=== PATIENT | male | born 1950 | race Caucasian/White ===

== ENCOUNTER 2017-01-12 13:59 | Emergency (ER) | payer MEDICARE ==
--- NOTE | ~2017-01-12 | CT2 ---
[facility] A Service of [facility] RADIOLOGY TEXT RESULTS PATIENT: SOFIE SPANGLER JR LOCATION: [facility] : [birth year] UNIT #: [id number] AGE: [address]: Toro Prieto MD SEX: M ORDER DR: [id number] [facility] [address] [place], [place] [address] [id number] MR#: [id number] Acc #: [id number] NAME: SOFIE SPANGLER JR : 1950 SEX: M STUDY DATE/TIME: 01/12/2017 15:00 UNIT: [facility] ROOM: STUDY DESCRIPTION: CT Abd and Pelv W Cont Attending Physician: Toro Prieto M.D. Ordering Physician: Toro Prieto M.D. Primary Care Physician: Jennifer Rasheed Aprn MEDICAL IMAGING REPORT This report is preliminary unless electronic signature is present EXAM CT abdomen and pelvis 01/12/2017 INDICATIONS Nausea, vomiting and diarrhea with mid to lower abdominal pain for the last 3-4 days. History of lymphoma and hepatitis C and aortic aneurysm. TECHNIQUE Axial images were obtained through the abdomen and pelvis following oral and IV contrast administration. Multiplanar reformats were obtained. This CT exam was performed with one or more of the following radiation dose reduction techniques: automatic exposure control, adjustment of mA and/or kV according to patient size, and iterative reconstruction. COMPARISON STUDIES Comparison made with 12/21/2016. FINDINGS CT ABDOMEN: There is a small right pleural effusion that is not significantly changed. There is extensive atherosclerotic disease. An infrarenal abdominal aortic aneurysm measures up to about 5.1 cm which is unchanged. Massive splenomegaly is unchanged. There is some fatty infiltration of the liver, and the liver has a cirrhotic morphology. No focal liver mass is identified. There are a few small retroperitoneal lymph nodes which are unchanged. Minimal amount of free fluid is relatively stable as well. The gallbladder has been removed in the interval. There is a small fluid and gas collection in the gallbladder fossa. This could reflect a biloma with some postoperative gas. Correlate with time from surgery. Given potential gas bubbles, abscess cannot be completely excluded although this is felt to be less likely. The GI tract is within normal limits. There is some fluid in the colon compatible with diarrhea. [facility] A Service of [facility] RADIOLOGY TEXT RESULTS PATIENT: SOFIE SPANGLER JR LOCATION: [facility] : 52 UNIT #: [id number] AGE: [address]: Toro Prieto MD SEX: M ORDER DR: CT PELVIS: There is some mild body wall edema. There is a small volume of ascites. The volume of fluid has increased since the prior CT. A round calcification laying dependently in the posterior pelvis measures 1.6 cm in diameter and is most likely a dropped gallstone. There is sigmoid diverticulosis. The colon is fluid-filled compatible with diarrhea. The GI tract including the appendix is otherwise normal. No adenopathy in the pelvis. There are no suspicious osseous lesions in the abdomen or pelvis. IMPRESSION 1. Interval cholecystectomy. No biliary obstruction. There is a small fluid collection in the gallbladder fossa and there appears to be some gas within it. This may simply reflect a small seroma in a recently postoperative patient. Abscess and biloma not completely excluded based on this exam alone. 2. Cirrhosis and massive splenomegaly unchanged. 3. Stable small right pleural effusion. 4. Small volume of ascites in the abdomen and pelvis, slightly increased. 5. Dropped gallstone in the dependent pelvis. 6. Fluid-filled colon suggesting diarrhea. The GI tract is otherwise within normal limits. 7. Stable appearance of a 5.1 cm abdominal aortic aneurysm. Dictated by... Sumanth Esqueda Jr., M.D. THIS IS AN ELECTRONICALLY VERIFIED REPORT Sumanth Esqueda Jr., M.D. at 01/13/2017 8:09 AM OMAYRA/gabe TD: 01/12/2017 18:36 JOB #: [id number] MEDICAL IMAGING REPORT COPY
[2017-01-12 13:06] LABS: BASOPHIL% 0.2 % (0-2.5); EOSINOPHIL# 0.1 X10e3 (0-0.7); EOSINOPHIL% 0.8 % (0.0-7.0); HEMATOCRIT 36.1 % (38.0-50.0); HEMOGLOBIN 11.4 gm/dL (13.0-16.0); LYMPHOCYTE# 0.7 X10e3 (1.0-3.5); MEAN CELL VOLUME 78.3 FL (83-96); MEAN CORPUSCULAR HEMOGLOBIN 24.6 PG (28-34); MEAN CORPUSCULAR HGB CONC 31.4 g/dL (30-36); MONOCYTE# 0.7 X10e3 (0-1.0); MONOCYTE% 8.1 % (3.0-12.0); NEUTROPHIL# 7.3 X10e3 (1.5-7.1); NEUTROPHIL% 82.9 % (40-75); PLATELET COUNT 151 X10e3 (140-420); RED BLOOD COUNT 4.62 X10e (3.90-5.60); RED CELL DISTRIBUTION WIDTH 18.2 % (11.0-15.5); WHITE BLOOD COUNT 8.9 X10e3 (4.0-10.5)
[2017-01-12 13:08] LABS: DIFF IND NO
[2017-01-12 13:32] LABS: ALBUMIN SERUM 4.5 g/dL (3.5-5.0); ALKALINE PHOSPHATASE 146 U/L (32-92); ALT (SGPT) 21 U/L (10-40); AST (SGOT) 26 U/L (10-42); BILIRUBIN, DIRECT 0.3 mg/dL (0.0-0.2); BILIRUBIN,INDIRECT 0.9 mg/dL (0.0-0.9); BILIRUBIN,TOTAL 1.2 mg/dL (0.2-2.0); BLOOD UREA NITROGEN 34 mg/dL (9-23); CALCIUM SERUM 9.9 mg/dL (8.4-10.2); CARBON DIOXIDE 30 mmol/L (22-31); CHLORIDE 102 mmol/L (100-111); GLOM FILT RATE Estimated ABOVE60 mL/min (>60); GLUCOSE FASTING 150 mg/dL (70-110); LIPASE 14 U/L (22-51); POTASSIUM 4.4 mmol/L (3.5-5.1); PROTEIN TOTAL SERUM 7.9 g/dL (6.0-8.3); SODIUM 141 mmol/L (135-145)
[~2017-01-12 13:59] MED LIST: ADVIL200 M2 PO; AGGRENOX1 CAP PO; ALDACTONE25 MG PO; ANTIVERT PO; ASA-CA CARB-MA325 MG PO; ASPIR-TRIN325 MG PO; ASPIRIN EC81 M1 PO; ASPIRIN ENTERI325 M1 PO; ASPIRIN PO; ASPIRIN81 M2 PO; ASPIRIN81 MG PO; ATORVASTATIN CA10 MG PO; B-122500 MC1 PO; BAYER ASPIRIN325 M1 PO; BUMETANIDE1 MG PO; CARVEDILOL25 MG PO; CELEXA20 MG PO; COATED ASPIRIN325 M1 PO; COREG3.125 MG PO; COREG6.25 MG PO; DIGOX0.125 MG PO; DOXYCYCLINE HY100 M1 PO; FEROSUL325 ( 651 PO; FOLIC ACID PO; FUROSEMIDE40 MG PO; GLUCOTROL PO; IMDUR-ER30 M1 PO; IMDUR-ER60 M3 PO; IMDUR30 MG PO; IRON325 ( 651 PO; K-DUR20 ME1 PO; KEFZOL1 GM IV; KEPPRA500 M1 PO; LASIX PO; LASIX20 MG PO; LIPITOR PO; LISINOPRIL PO; LISINOPRIL20 MG PO; LORTAB 7.5-3251 EACH PO; LOSARTAN POTASS50 MG PO; METOPROLOL TAR25 MG PO; MULTI-VITAMIN1 TAB PO; MULTIVITAMIN1 UDCAP PO; NITROGLYCERIN0.3 MG SL; NITROGLYCERIN0.4 MG SL; NITROGLYGERIN0.4 MG; NITROGLYGERIN0.4 MG SL; NITROGYLCERIN SUBLINGUAL; NITROSTAT0.4 MG SL; PANTOPRAZOLE SO40 MG PO; PHENERGAN W/CO120 ML PO; PLAVIX PO; POTASSIUM CHLO20 ME1 PO; POTASSIUM GLUCO PO; PRINIVIL40 MG PO; RANEXA500 MG DOB; RANEXA500 MG PO; RIBASPHERE200 MG PO; RIBASPHERE400 MG PO; SOVALDI400 MG PO; TEMAZEPAM PO; THIAMINE HCL100 M1 DOB; ZOCOR PO
== END 2017-01-12 16:20 | disposition home or self-care (01) ==
LOC: CED 13:59
PROVIDERS: Emergency Medicine
DX: R10.84 Generalized abdominal pain (principal); R11.2 Nausea with vomiting, unspecified; R19.7 Diarrhea, unspecified; I10 Essential (primary) hypertension; Z90.89 Acquired absence of other organs; Z79.82 Long term (current) use of aspirin; Z79.899 Other long term (current) drug therapy
CPT/HCPCS: 36415; 74177; 80048; 80076; 83690; 85025; 96361; 96374; 96376; 99284; J2270; Q9967

== ENCOUNTER 2017-01-21 17:21 | Inpatient (IN) | payer MEDICARE ==
--- NOTE | ~2017-01-21 | CR4 ---
[facility] A Service of [facility] & [facility] RADIOLOGY TEXT RESULTS PATIENT: SOFIE SPANGLER JR LOCATION: [facility] 475-01 : [birth year] UNIT #: [id number] AGE: [address]: Sumanth Newsome MD SEX: M ORDER DR: [id number] [facility] [address] [place], [place] [address] [id number] I MR#: [id number] Acc #: [id number] NAME: SOFIE SPANGLER JR : 1950 SEX: M STUDY DATE/TIME: 01/22/2017 11:41 UNIT: [facility] ROOM: [facility] STUDY DESCRIPTION: CR Abdomen Flat Upright or Dec Attending Physician: Sumanth Newsome M.D. Ordering Physician: Sumanth Newsome M.D. Primary Care Physician: Primary Care Physician No MEDICAL IMAGING REPORT This report is preliminary unless electronic signature is present EXAM Flat and upright abdomen INDICATIONS 66-year-old male with history of nausea, vomiting, abdominal pain following a cholecystectomy 2 weeks ago. COMPARISON 01/21/2017 FINDINGS The previously noted dilated loops of small bowel are no longer present. Oral contrast within the colon. Contrast in the urinary bladder. Cholecystectomy clips. Aortic aneurysm again noted. IMPRESSION No evidence of any dilated loops of small bowel on today's exam. Oral contrast has passed into the colon. Dictated by... Champ Browne M.D. THIS IS AN ELECTRONICALLY VERIFIED REPORT Champ Browne M.D. at 01/23/2017 10:43 AM ANGEL/ben TD: 01/23/2017 06:10 JOB #: [id number] MEDICAL IMAGING REPORT COPY
--- NOTE | ~2017-01-21 | DS ---
Unit #: [id number] #: [id number] Patient: SOFIE SPANGLER JR [id number] [address] [address] [id number] I MR#: [id number] NAME: SOFIE SPANGLER JR ROOM: [facility] Age: 66 Sex: M Admission Date: 01/21/2017 : 1950 Discharge Date: 01/24/2017 Attending Physician: Sumanth Newsome M.D. Primary Care Physician: No Primary Care Physician DISCHARGE SUMMARY CONSULTATIONS None. ADMITTING DIAGNOSIS Partial small bowel obstruction. DISCHARGE DIAGNOSIS Partial small bowel obstruction. PROCEDURE PERFORMED None. BRIEF HOSPITAL COURSE This is a 66-year-old gentleman who was admitted with signs and symptoms of partial small bowel obstruction. He was hydrated and had followup x-rays, which showed improvement in his bowel gas pattern. He was slowly transitioned to a full liquid diet and then a regular diet and was passing flatus. He felt much better. He was then discharged home. DISPOSITION Discharged to home. FOLLOW-UP He is to follow up with [facility] as necessary. MEDICATIONS He is to resume his home medications. Dictated by... Adolfo Alonzo III, M.D. VCL/noah TD: 01/24/2017 10:35 JOB #: [id number] Unit #: [id number] #: [id number] Patient: SOFIE SPANGLER JR DISCHARGE SUMMARY X Adolfo Alonzo III, MD X DISCHARGE SUMMARY
--- NOTE | ~2017-01-21 | HP ---
Unit #: [id number] #: [id number] Patient: SOFIE BISHOP JR [id number] [address] [address] [id number] I MR#: [id number] NAME: SOFIE BISHOP JR ROOM: [facility] Age: 66 Sex: M Admission Date: 01/21/2017 : 1950 Attending Physician: Sumanth Newsome M.D. Primary Care Physician: No Primary Care Physician HISTORY AND PHYSICAL HISTORY OF PRESENT ILLNESS Mr. Bishop is a 66-year-old gentleman with a history of heart disease and congestive heart failure, portal hypertension from hepatic cirrhosis and ischemic cardiomyopathy. He presented with complaints of abdominal discomfort, nausea and vomiting. An outpatient CT scan was read as ileus versus partial small bowel obstruction. Only prior surgeries he has had are an umbilical hernia repair in the remote past and a recent laparoscopic cholecystectomy in 12/2016. The patient denies any fever, chills or night sweats. He has not had any hematemesis, hematochezia or melena. PAST MEDICAL HISTORY 1. Hepatic cirrhosis with portal hypertension. 2. Cholelithiasis status post laparoscopic cholecystectomy. 3. Umbilical hernia repair. 4. Chronic systolic congestive heart failure. 5. Stroke. 6. TIAs in the past. 7. Esophageal varices with banding. 8. Coronary artery disease status post coronary artery bypass grafting in 2003 with a redo in 2007. 9. Dilated ischemic cardiomyopathy with an ejection fraction of 20%. 10. Atrial implantable cardioverter defibrillator placed. 11. History of thrombocytopenia. 12. Anemia. 13. Hepatitis C. 14. Abdominal aortic aneurysm. 15. Peripheral vascular disease. 16. Stenting to the bilateral fem/pop arteries. 17. Previous history of atrial fibrillation. 18. History of alcoholism. 19. History of tobacco abuse, although he currently does not smoke or drink. SOCIAL HISTORY Retired. No longer drinks or smokes. FAMILY HISTORY Hypertension, heart disease, lung cancer. ALLERGIES No known drug allergies. CURRENT MEDICATIONS Unit #: [id number] #: [id number] Patient: SOFIE BISHOP JR 1. Ranexa. 2. Coreg. 3. Atorvastatin. 4. Bumetanide. 5. Protonix. 6. Ferrous sulfate. 7. K-Dur. 8. Aldactone. 9. Aspirin. 10. Digoxin. 11. Lortab. 12. Lorazepam. 13. NitroQuick. REVIEW OF SYSTEMS Otherwise unremarkable. PHYSICAL EXAMINATION GENERAL: He is awake, alert and oriented, in no acute distress. VITALS: Temperature 97.8, pulse 60, respiratory rate 14, blood pressure 139/45. HEENT: Unremarkable. LUNGS: Clear. HEART: Regular rhythm. ABDOMEN: Slightly distended, but soft. He has well-healed surgical scars with no hernia. He has mild guarding diffusely, but there is no rebound tenderness or localized discomfort. The patient has bowel sounds and has been passing flatus this morning. EXTREMITIES: No edema. NEUROLOGIC: Grossly intact. SKIN: No skin rashes or lesions. DIAGNOSTIC STUDIES IMAGING: CT scan as discussed. Possibility of partial small bowel obstruction versus ileus. LABORATORY: CMP this morning is within normal limits. Amylase and lipase are normal. White blood cell count 5,400 with normal differential. Hemoglobin 10.9, platelets 149,000. MCV is 78 and MCH 24, but he has known iron deficiency. ASSESSMENT/PLAN The patient is a 66-year-old gentleman as described, presents with nausea and vomiting and a CT scan as an outpatient was consistent with ileus versus early partial small bowel obstruction. There are no other acute findings. Since admission the patient has had no further vomiting and has started to pass flatus. We will hydrate the patient, stimulate his bowel and repeat abdominal x-rays. Due to his high risk comorbid conditions before considering any surgical intervention I would perform a small bowel followthrough to confirm that there is a mechanical obstruction. Dictated by Sumanth Newsome M.D. RS/gz Unit #: [id number] #: [id number] Patient: SOFIE BISHOP JR TD: 01/22/2017 06:52 JOB #: [id number] HISTORY AND PHYSICAL X Sumanth Newsome MD HISTORY AND PHYSICAL
[2017-01-21 17:16] LABS: BASOPHIL% 0.6 % (0-2.5); EOSINOPHIL# 0.2 X10e3 (0-0.7); EOSINOPHIL% 3.9 % (0.0-7.0); HEMATOCRIT 30.6 % (38.0-50.0); HEMOGLOBIN 9.8 gm/dL (13.0-16.0); LYMPHOCYTE# 0.7 X10e3 (1.0-3.5); LYMPHOCYTE% 14.6 % (17.0-45.0); MEAN CELL VOLUME 77.4 FL (83-96); MEAN CORPUSCULAR HEMOGLOBIN 24.8 PG (28-34); MEAN PLATELET VOLUME 8.7 FL (6.5-11.5); MONOCYTE# 0.5 X10e3 (0-1.0); MONOCYTE% 9.7 % (3.0-12.0); NEUTROPHIL# 3.3 X10e3 (1.5-7.1); NEUTROPHIL% 71.2 % (40-75); PLATELET COUNT 133 X10e3 (140-420); RED BLOOD COUNT 3.95 X10e (3.90-5.60); RED CELL DISTRIBUTION WIDTH 18.1 % (11.0-15.5); WHITE BLOOD COUNT 4.7 X10e3 (4.0-10.5)
[2017-01-21 17:18] LABS: DIFF IND NO
[2017-01-21 17:41] LABS: ALBUMIN SERUM 4.1 g/dL (3.5-5.0); ALKALINE PHOSPHATASE 116 U/L (32-92); ALT (SGPT) 12 U/L (10-40); AMYLASE 22 U/L (0-46); AST (SGOT) 16 U/L (10-42); BILIRUBIN, DIRECT 0.2 mg/dL (0.0-0.2); BILIRUBIN,INDIRECT 0.8 mg/dL (0.0-0.9); BLOOD UREA NITROGEN 20 mg/dL (9-23); CARBON DIOXIDE 25 mmol/L (22-31); CHLORIDE 102 mmol/L (100-111); CREATININE SERUM 0.8 mg/dL (0.6-1.4); GLOM FILT RATE Estimated ABOVE60 mL/min (>60); GLUCOSE FASTING 99 mg/dL (70-110); LIPASE 13 U/L (22-51); POTASSIUM 4.5 mmol/L (3.5-5.1); SODIUM 137 mmol/L (135-145)
[2017-01-22] MEDS ORDERED: ATIVAN PO (01:51)
[2017-01-22] MEDS ORDERED: NITROQUICK0.4 MG SL (01:54)
[2017-01-22 03:47] LABS: BASOPHIL% 0.6 % (0-2.5); EOSINOPHIL# 0.2 X10e3 (0-0.7); HEMATOCRIT 34.9 % (38.0-50.0); HEMOGLOBIN 10.9 gm/dL (13.0-16.0); LYMPHOCYTE# 0.8 X10e3 (1.0-3.5); LYMPHOCYTE% 14.5 % (17.0-45.0); MEAN CELL VOLUME 78.2 FL (83-96); MEAN CORPUSCULAR HEMOGLOBIN 24.3 PG (28-34); MEAN CORPUSCULAR HGB CONC 31.2 g/dL (30-36); MONOCYTE# 0.5 X10e3 (0-1.0); MONOCYTE% 9.9 % (3.0-12.0); NEUTROPHIL# 3.9 X10e3 (1.5-7.1); PLATELET COUNT 149 X10e3 (140-420); RED BLOOD COUNT 4.47 X10e (3.90-5.60); RED CELL DISTRIBUTION WIDTH 18.1 % (11.0-15.5); WHITE BLOOD COUNT 5.4 X10e3 (4.0-10.5)
[2017-01-22 03:49] LABS: DIFF IND NO
[2017-01-22 04:12] LABS: ALBUMIN SERUM 4.3 g/dL (3.5-5.0); ALKALINE PHOSPHATASE 123 U/L (32-92); ALT (SGPT) 16 U/L (10-40); AMYLASE 19 U/L (0-46); AST (SGOT) 19 U/L (10-42); BLOOD UREA NITROGEN 17 mg/dL (9-23); BUN/CREATININE RATIO 21.25; CARBON DIOXIDE 26 mmol/L (22-31); CHLORIDE 108 mmol/L (100-111); CREATININE SERUM 0.8 mg/dL (0.6-1.4); GLOM FILT RATE Estimated ABOVE60 mL/min (>60); GLUCOSE FASTING 125 mg/dL (70-110); LIPASE 12 U/L (22-51); MAGNESIUM 1.9 mg/dL (1.6-3.0); PHOSPHOROUS 3.6 mg/dL (2.5-4.6); POTASSIUM 4.1 mmol/L (3.5-5.1); PROTEIN TOTAL SERUM 7.4 g/dL (6.0-8.3); SODIUM 138 mmol/L (135-145)
[2017-01-23 03:51] LABS: HEMATOCRIT 28.6 % (38.0-50.0); HEMOGLOBIN 9.2 gm/dL (13.0-16.0); MEAN CORPUSCULAR HEMOGLOBIN 24.7 PG (28-34); MEAN CORPUSCULAR HGB CONC 32.1 g/dL (30-36); MEAN PLATELET VOLUME 8.6 FL (6.5-11.5); RED BLOOD COUNT 3.72 X10e (3.90-5.60); RED CELL DISTRIBUTION WIDTH 18.4 % (11.0-15.5); WHITE BLOOD COUNT 2.9 X10e3 (4.0-10.5)
[2017-01-23 04:15] LABS: BLOOD UREA NITROGEN 14 mg/dL (9-23); CALCIUM SERUM 8.4 mg/dL (8.4-10.2); CARBON DIOXIDE 26 mmol/L (22-31); CHLORIDE 105 mmol/L (100-111); CREATININE SERUM 0.7 mg/dL (0.6-1.4); DIGOXIN (LANOXIN) 0.4 ng/ml (1.0-2.0); GLOM FILT RATE Estimated ABOVE60 mL/min (>60); GLUCOSE FASTING 91 mg/dL (70-110); MAGNESIUM 1.8 mg/dL (1.6-3.0); POTASSIUM 3.9 mmol/L (3.5-5.1); SODIUM 135 mmol/L (135-145)
[2017-01-24 03:55] LABS: HEMATOCRIT 27.6 % (38.0-50.0); HEMOGLOBIN 8.9 gm/dL (13.0-16.0); MEAN CORPUSCULAR HEMOGLOBIN 24.5 PG (28-34); MEAN CORPUSCULAR HGB CONC 32.2 g/dL (30-36); MEAN PLATELET VOLUME 8.9 FL (6.5-11.5); RED BLOOD COUNT 3.64 X10e (3.90-5.60); RED CELL DISTRIBUTION WIDTH 17.9 % (11.0-15.5); WHITE BLOOD COUNT 2.2 X10e3 (4.0-10.5)
[2017-01-24 04:19] LABS: BLOOD UREA NITROGEN 8 mg/dL (9-23); BUN/CREATININE RATIO 13.33; CALCIUM SERUM 8.2 mg/dL (8.4-10.2); CARBON DIOXIDE 27 mmol/L (22-31); CHLORIDE 108 mmol/L (100-111); CREATININE SERUM 0.6 mg/dL (0.6-1.4); GLOM FILT RATE Estimated ABOVE60 mL/min (>60); GLUCOSE FASTING 116 mg/dL (70-110); POTASSIUM 3.4 mmol/L (3.5-5.1); SODIUM 136 mmol/L (135-145)
== END 2017-01-24 10:00 | disposition home health service (06) | DRG 389 ==
LOC: CED 17:21 → CEDOF 18:30 → C4C 21:00
PROVIDERS: Specialist; Student in an Organized Health Care Education/Training Program
DX: K56.60 Unspecified intestinal obstruction (principal); K76.6 Portal hypertension; I42.0 Dilated cardiomyopathy; I50.22 Chronic systolic (congestive) heart failure; J44.9 Chronic obstructive pulmonary disease, unspecified; I10 Essential (primary) hypertension; Z90.49 Acquired absence of other specified parts of digestive tract; I25.10 Atherosclerotic heart disease of native coronary artery without angina pectoris; Z95.1 Presence of aortocoronary bypass graft; K74.60 Unspecified cirrhosis of liver; I25.5 Ischemic cardiomyopathy; Z79.82 Long term (current) use of aspirin; R19.7 Diarrhea, unspecified; I71.4 Abdominal aortic aneurysm, without rupture; F10.21 Alcohol dependence, in remission; D64.9 Anemia, unspecified; I73.9 Peripheral vascular disease, unspecified; Z82.49 Family history of ischemic heart disease and other diseases of the circulatory system; Z80.1 Family history of malignant neoplasm of trachea, bronchus and lung; R11.2 Nausea with vomiting, unspecified; R10.9 Unspecified abdominal pain; K63.89 Other specified diseases of intestine; R93.8 Abnormal findings on diagnostic imaging of other specified body structures
CPT/HCPCS: 36415; 74020; 74177; 80048; 80053; 80076; 80162; 82150; 83690; 83735; 84100; 84443; 85025; 85027; 96374; 96375; 99285; C9113; J1160; J1650; J2270; J2405; Q9967

== ENCOUNTER 2017-02-09 23:59 | Emergency (ER) | payer MEDICARE ==
[~2017-02-09 23:59] MED LIST changes: +ATIVAN PO; +NITROQUICK0.4 MG SL
== END 2017-02-10 01:11 | disposition home or self-care (01) ==
LOC: CED 23:59
DX: G89.18 Other acute postprocedural pain (principal); R10.11 Right upper quadrant pain; E11.9 Type 2 diabetes mellitus without complications; Z90.49 Acquired absence of other specified parts of digestive tract; I10 Essential (primary) hypertension; J44.9 Chronic obstructive pulmonary disease, unspecified; Z79.899 Other long term (current) drug therapy
CPT/HCPCS: 99283

== ENCOUNTER 2017-03-07 21:34 | Inpatient (IN) | payer MEDICARE ==
--- NOTE | ~2017-03-07 | CO ---
Unit #: [id number] #: [id number] Patient: SOFIE BISHOP JR [id number] [address] [address] [id number] MR#: [id number] NAME: SOFIE BISHOP JR ROOM: 31608 Age: 66 Sex: M Admission Date: 03/08/2017 : 1950 Attending Physician: Shay Franco M.D. Primary Care Physician: Cherrie Primary Care Physician Consultation Date: 03/08/2017 CONSULTATION REPORT REASON FOR CONSULTATION 1. Nausea and vomiting. 2. Diarrhea. CONSULTING PHYSICIAN 1. Dr. Yanna Cabrera. 2. HIPS. HISTORY OF PRESENT ILLNESS Thank you very much for asking us to see Mr. Bishop. He is a 66-year-old white male who had underwent laparoscopic cholecystectomy in December 2016 and an umbilical hernia repair in the past. At the time of cholecystectomy, he was found to have acute cholecystitis, cholelithiasis, cirrhosis of the liver, and evidence of portal hypertension. The patient overall had been doing well until the last several days when he developed multiple episodes of nausea and vomiting. He denies any hematemesis. He also developed watery diarrhea. He states he will have five to six watery bowel movements per day. He denies any blood present. He has no severe pain. He has no crampy pain, just vague discomfort. He presents at this time for further evaluation and treatment. PAST MEDICAL HISTORY 1. Cirrhosis. 2. Portal hypertension. 3. Status post laparoscopic cholecystectomy. 4. Status post umbilical hernia repair. 5. Chronic congestive heart failure. 6. History of stroke in the past. 7. History of esophageal varices with banding. 8. Coronary artery disease. 9. Status post coronary artery bypass grafting. 10. Thrombocytopenia. 11. Pacemaker placement. 12. Ischemic cardiomyopathy. 13. Anemia. 14. Hepatitis C. 15. Abdominal aortic aneurysm. 16. Peripheral vascular disease with study to bilateral lower extremities. 17. History of atrial fibrillation. 18. History of heavy alcohol use. 19. History of heavy tobacco use. SOCIAL HISTORY Unit #: [id number] #: [id number] Patient: SOFIE BISHOP JR No tobacco or alcohol use at this time. FAMILY HISTORY Hypertension, lung cancer, heart disease. ALLERGIES No known medical allergies. MEDICATIONS Please see med rec sheet. REVIEW OF SYSTEMS Negative except for above. IMMUNIZATIONS Status unknown. PHYSICAL EXAMINATION GENERAL: Well-developed, well-nourished, white male in no apparent distress. VITAL SIGNS: Afebrile. Vital signs stable. NECK: Supple. No thyromegaly or adenopathy. BACK: No CVA or spinous tenderness. CHEST: Breath sounds bilaterally equal to auscultation and clear. CARDIAC: Regular rate and rhythm without murmur heard. ABDOMEN: Flat, soft, minimally tender, nondistended. No rigidity. No masses. No rebound or peritoneal signs. Incisions are all healed nicely. No palpable inguinal hernia is present. EXTREMITIES: No calf tenderness. DIAGNOSTIC STUDIES LABORATORY: Laboratory studies reveal the patient to have a normal CMP and amylase and lipase. His white count is 2.4 which is in the range that it has been over the last several months and his hemoglobin is 10.9 which also is in the range that he has been in for the last two to three months. His MCV is 75.2. Platelet count is 102,000. Urinalysis was normal. IMAGING: CT scan of the abdomen and pelvis reveals some dilated small bowel loops in the right lower quadrant but there are gases still in the colon. The small bowel loops have a nonspecific appearance per the radiologist. There may be a slight transition zone but no evidence of obstruction and it is unchanged from previous studies. There also is an abdominal aortic aneurysm that the size is unchanged but mural thrombus has increased. IMPRESSION A 66-year-old white male with nausea, vomiting, diarrhea. We agree with the need for Protonix as well as stool studies sent for Clostridium difficile, culture and toxin, ova and parasite, culture and sensitivity. We will add Hemoccult testing. He may need upper and lower endoscopy. We will also have vascular surgery see the patient for increased mural thrombus of the aneurysm. Thank you very much for this dictation. Unit #: [id number] #: [id number] Patient: CRYS SOFIE Chula Dictated by... Gabriel Dukes/george TD: 03/08/2017 15:26 JOB #: [id number] CC: [facility] [place] [facility] Hips CONSULTATION REPORT Page 1 of 1 X Emigdio Garza MD REPORT
--- NOTE | ~2017-03-07 | EKG ---
PATIENT: SOFIE SPANGLER UNIT #: [id number] Ventricular Rate: 67 BPM Atrial Rate: 67 BPM P-R Interval: 232 ms QRS Duration: 126 ms Q-T Interval: 392 ms QTC Calculation(Bezet): 414 ms P Cameron: 83 degrees Calculated R Cameron: 92 degrees Calculated T Cameron: 169 degrees Diagnosis Line: Sinus rhythm with 1st degree A-V block Diagnosis Line: Rightward axis Diagnosis Line: Non-specific intra-ventricular conduction block Diagnosis Line: T wave abnormality, consider inferior ischemia Diagnosis Line: T wave abnormality, consider anterolateral Diagnosis Line: ischemia Diagnosis Line: Abnormal ECG Diagnosis Line: When compared with ECG of 31-DEC-2016 06:27, Diagnosis Line: T wave inversion more evident in Anterolateral Diagnosis Line: leads Diagnosis Line: Confirmed by JOSE NIÑO MD ([id number]) on 03/07/2017 Diagnosis Line: 10:37:04 PM INTERPRETING MD: SALINAS LARA
--- NOTE | ~2017-03-07 | A ---
[facility] Nutrition Therapy DATE: 03/09/17 Patient: SOFIE SPANGLER Physician: IVANA Address: [address] Room/Bed: [address] [place] [address], Zip: [place] [address] Admit Date: 03/08/17 Date of : [birth year] Height: 5 9 Weight: 161 73.2 NUTRITIONAL ASSESSMENT: REASON: 5 NUTRITION RISK PT RE: 50# WEIGHT LOSS, ALSO CONSULT RE: WEIGHT LOSS PT IS 66 Y.O. MALE ADMITTED FOR WEAKNESS, FALLS, ABD PAIN PMH: CHF, RECOVERING ALCOHOLIC, CARDIOMYOPATHY, LYMPHOMA, HEP C, AFIB, HTN, HLD, CAD, BYPASS, DE, STROKE, PACEMAKER, CIRRHOSIS, DIVERTICULOSIS, PAD Anthropometrics: 5'9", WT: 156# (71 KG), BMI: 23.0, 98%IBW Labs: GLU: 115, TGs: 169 (12/30/16) Meds: LIPITOR, SPIRONOLACTONE, PROTONIX, ZOFRAN I/O & Bowel function: Skin Integrity: SCATTERED BRUISUES ALL OVER BODY; DRY SKIN NOTED Estimated Nutrition Needs: INCREASED NUTRIENT NEEDS 2' WEIGHT LOSS NOTED, CURRENT CONDITION/PMH Assessment: CHART REVIEWED AND EVENTS NOTED. PT SEEN FOR WEIGHT LOSS. PT REPORTS FAIR/GOOD PO INTAKE AND APPETITE BUT C/O CHRONIC ABD DISCOMFORT AFTER EATING. PT REPORTS UBW IS ~200# BUT UNABLE TO IDENTIFY TIME FRAME OF WEIGHT LOSS. OF NOTE, RD ASSESSED PT ON 12/30/16, NOTING A ~27# WEIGHT LOSS IN PAST COUPLE OF MONTHS?? PT ATTRIBUTES WEIGHT LOSS TO ABD DISCOMFORT AFTER EATING. THIS RD ENCOURAGED ADEQUATE KCAL AND PROTEIN INTAKE, PT AGREED TO ENSURE COMPACT SHAKES BID, RD TO ORDER. RD ALSO PROVIDED LOW FAT/2 GM NA DIET (WRITTEN AND VERBAL) DIET EDUCATION. PT DEMONSTRATED UNDERSTANDING OF THE TOPIC. REPORTED NO DIET QUESTIONS AT THIS TIME. RD TO CONTINUE TO FOLLOW. Dx: UNINTENTIONAL WEIGHT LOSS R/T GI SX, DISCOMFORT AEB PT REPORT ABOVE, ?~50# WEIGHT LOSS NOTED. Intervention: 1. LOW FAT DIET 2. THEODORA ENSURE COMPACT BID W/MEALS 3. LOW FAT/2 GM NA DIET EDUCATION Monitoring, Evaluation and Goals: 1. ORAL INTALE; CONSUME >50% OF MEALS AND SUPPLEMENTS W/NO C/O N/V/D 2. WEIGHTS; PREVENT FURTHER WEIGHT LOSS 3. LABS; WNL 4. GI; PROMOTE REGULAR GI FUNCTION [facility] Nutrition Therapy DATE: 03/09/17 Patient: SOFIE SPANGLER JR Physician: IVANA Address: [address] Room/Bed: [address] [place] [address], Zip: [place] [address] Admit Date: 03/08/17 Date of : [birth year] Height: 5 9 Weight: 161 73.2 MONITOR: -PO INTAKE/APPETITE -WEIGHTS -SUPPLEMENT INTAKE Recommendations: 1. ORDER THEODORA ENSURE COMPACT BID W/MEALS 2. ADD 6 KAY TO CURRENT DIET ORDER ABOVE 3. ENCOURAGE ADEQUATE KCAL, PROTEIN AND FLUID INTAKE RD WILL F/U PER PROTOCOL PT IS MODERATELY COMPROMISED Respectfully, EMA HARGROVE MS, RD, LD [facility] cc: client file
--- NOTE | ~2017-03-07 | CT14 ---
[facility] A Service of [facility] RADIOLOGY TEXT RESULTS PATIENT: SOFIE SPANGLER JR LOCATION: [facility] 550-01 : [birth year] UNIT #: [id number] AGE: [address]: Shay Franco MD SEX: M ORDER DR: [id number] [facility] [address] [place], [place] [address] [id number] I MR#: [id number] #: [id number] NAME: SOFIE SPANGLER JR : 1950 SEX: M STUDY DATE/TIME: 03/09/2017 8:02 UNIT: [facility] ROOM: [facility] STUDY DESCRIPTION: CT Angio Abdomen and Pelvis Attending Physician: Shay Franco M.D. Ordering Physician: Rohit Serrano M.D. Primary Care Physician: No Primary Care Physician MEDICAL IMAGING REPORT This report is preliminary unless electronic signature is present EXAM CT angiogram of the abdomen and pelvis. INDICATION Aortic aneurysm. Preop for EVAR. TECHNIQUE CT angiogram of the abdomen and pelvis was performed following the administration of IV contrast. Coronal, sagittal, and 3-D reformatted images were obtained. This CT exam was performed with one or more of the following radiation dose reduction techniques: automatic exposure control, adjustment of mA and/or kV according to patient size, and iterative reconstruction. COMPARISON 03/07/[address] ANGIOGRAM: There is an infrarenal abdominal aortic aneurysm measuring roughly 4.8-5.0 cm in greatest AP dimension. This is stable. There are bilateral kissing iliac artery stents which are patent. Distal to the stent in the right common iliac artery is significant atherosclerotic plaque with mild to moderate luminal narrowing. There is also significant atherosclerotic plaque diffusely within the right external iliac artery with diffuse moderate to severe luminal narrowing. There are stents throughout the left common iliac artery which are patent. The left external iliac artery contains diffuse atherosclerotic plaque with diffuse moderate to severe narrowing. The celiac artery is patent without significant narrowing. Superior mesenteric artery is patent with mild narrowing at its origin due to atherosclerotic plaque. There is significant plaque at the origin of the right renal artery with moderate to severe stenosis. There is plaque at the origin of the left renal STS. [facility] A Service of [facility] & [facility] RADIOLOGY TEXT RESULTS PATIENT: SOFIE SPANGLER JR LOCATION: [facility] 550-01 : [birth year] UNIT #: [id number] AGE: [address]: Shay Franco MD SEX: M ORDER DR: artery with moderate to severe stenosis. CT OF THE ABDOMEN: There is mild bibasilar atelectasis in the lungs. There is a cirrhotic morphology of the liver. Cholecystectomy. Trace perihepatic ascites. Splenomegaly. Kidneys, adrenal glands, and pancreas are stable. There are multiple dilated loops of small bowel. These are located within the xha-yn-thunr abdomen. Distally the bowel loops are more decompressed. The small bowel distension is increased since 03/07/2017. Findings are suggestive of least a partial small bowel obstruction. The transition point appears to be within the right lower quadrant on image 173. There is trace free fluid in the pelvis. The colon is unremarkable. Bone windows demonstrate degenerative changes of the lumbar spine. IMPRESSION 1. Stable infrarenal abdominal aortic aneurysm. 2. Additional vascular findings described above. 3. Increased distension of small bowel loops suggesting worsening bowel obstruction. Transition point appears to be within the right lower quadrant. 4. Additional findings as described. Dictated by... Champ Browne M.D. THIS IS AN ELECTRONICALLY VERIFIED REPORT Champ Browne M.D. at 03/11/2017 9:31 AM ANGEL/aidan TD: 03/10/2017 09:31 JOB #: [id number] MEDICAL IMAGING REPORT Page 1 of 1 COPY
--- NOTE | ~2017-03-07 | CO ---
Unit #: [id number] #: [id number] Patient: SOFIE SPANGLER JR [id number] [address] [place], [place] [address] [id number] MR#: [id number] NAME: SOFIE SPANGLER ROOM: 550 Age: Sex: M Admission Date: 03/08/2017 : 1950 Attending Physician: Shay Franco M.D. Primary Care Physician: Primary Care Physician No Consultation Date: 03/11/2017 CONSULTATION REPORT CODE BYRON NOTE DATE 03/11/2017 Early this morning the patient requested some pain medicines. When the nurse arrived in his room, the IV was not working. The pain mediations were not given. The nurse made an attempt to place another IV. During that time, however, the patient became less responsive. He seemed short of breath, therefore, a MET team was called at about 2:18 a.m. The patient became apneic, and a tyrese casper was immediately called afterwards. The ER physician and I arrived on the floor while CPR was in progress. Despite high quality CPR, and ACLS by the ER physician who intubated the patient, the patient remained in PEA and then asystole. He was pronounced at 2:42 a.m. Attempts are underway to contact his family. Dictated by... Yanna Cabrera M.D. AML/ts TD: 03/11/2017 06:55 JOB #: [id number] CONSULTATION REPORT Page 1 of 1 X Yanna Cabrera MD X CONSULTATION REPORT
--- NOTE | ~2017-03-07 | CO ---
Unit #: [id number] #: [id number] Patient: SOFIE BISHOP JR [id number] [address] [address] [id number] I MR#: [id number] NAME: SOFIE BISHOP JR ROOM: 550 Age: 66 Sex: M Admission Date: 03/08/2017 : 1950 Attending Physician: Shay Franco M.D. Primary Care Physician: No Primary Care Physician CONSULTATION REPORT CHIEF COMPLAINT We were asked to see for surgical clearance. HISTORY OF PRESENT ILLNESS Mr. Bishop is a 66-year-old white male who was admitted with complaints of abdominal pain, weight loss, weakness, and falling. Patient states that he has not felt well since December after he had his hernia repair and cholecystectomy and he has just progressively worsened to the point now that he is having weight loss and falling. He underwent a laparoscopic cholecystectomy, December 31, 2016. He denies any shortness of air. No chest discomfort. Positive for increasing weakness and reports having fallen five times. He states his legs just give out. He is currently complaining that his abdomen still hurts and it is very bad pain. He has been having diarrhea as well. PAST MEDICAL HISTORY 1. Dilated ischemic cardiomyopathy, EF 20% to 25%. 2. Severe mitral regurgitation. 3. Arteriosclerotic heart disease with history of coronary artery bypass grafting in 2003, re-do bypass grafting in 2007. Patient has a stent in his left main and a stent in his left circumflex. 4. Paroxysmal atrial fibrillation. 5. AICD. 6. Peripheral vascular disease. 7. Abdominal aortic aneurysm. 8. Hepatitis C with grade 1 esophageal varices. 9. CVA in 2007. 10. Hypertension. 11. Dyslipidemia. 12. Low-grade B cell follicular lymphoma, Dr. Fransico covington. 13. Iron-deficiency anemia with chronic anemia. 14. History of diverticulosis. PAST SURGICAL HISTORY 1. Appendectomy. 2. Left elbow surgery. 3. AICD placement. 4. Stent to the right common iliac artery. 5. Cholecystectomy, December 31, 2016. 6. Umbilical hernia repair. HOME MEDICATIONS 1. Celexa 20 mg daily. 2. Neurontin 600 mg twice daily. Unit #: [id number] #: [id number] Patient: SOFIE BISHOP JR 3. Protonix 40 mg twice daily. 4. Ranexa 500 mg twice daily. 5. Ativan 0.5 mg three times daily p.r.n. 6. Digoxin 125 mcg daily. 7. Lipitor 10 mg daily. 8. Nitroglycerin sublingual p.r.n. 9. Ferrous sulfate 325 mg daily. 10. Aldactone 25 mg daily. 11. Bumex 1 mg twice daily. 12. Coreg 3.125 mg twice daily. 13. Potassium 20 mEq daily. ALLERGIES No known allergies. SOCIAL HISTORY He lives alone. He quit alcohol five to eight years ago. Recovered alcoholic. Quit tobacco three years ago, smoked age [age]. FAMILY HISTORY History of CVA, lung cancer, and diabetes in first degree relatives. REVIEW OF SYSTEMS Negative for fevers, chills. Positive for generalized weakness. Positive for falls. Positive for anorexia. Positive for weight loss. No chest pain. No chest discomfort. No dyspnea on exertion. No lower extremity edema. No melena. No bright red bleeding per rectum. No hematuria. PHYSICAL EXAMINATION GENERAL: Cachectic, elderly white male sitting at bedside in no acute distress. VITAL SIGNS: Temperature 98.1, pulse 69, respirations 19, blood pressure 109/55. Height 5 feet 9 inches, weight 72.2 kg. Back in 2014, patient weighed 89.5 kg in July 2015. BMI 23. HEENT: Normocephalic and atraumatic. No xanthelasma. Pupils equal, round, and reactive to light. Extraocular movements intact. NECK: Supple. No jugular venous distention. No elevated CVP. LUNGS: Clear to auscultation bilaterally anteriorly and posteriorly. HEART: S1, S2. No S3, S4. A 3/6 systolic murmur. ABDOMEN: Positive bowel sounds. Abdomen tender. EXTREMITIES: No clubbing, cyanosis, or edema. SKIN: Excoriations on bilateral lower extremities, knees and shins. One plus pulses bilaterally. SPINE: No scoliosis. DIAGNOSTIC STUDIES LABORATORY: Chemistries: Sodium 131, potassium 4, chloride 95, CO2 of 31, BUN 11, creatinine 0.8, glucose 106. Magnesium 1.5, phosphorous 3.7, calcium 8.6. Total protein 6.7, albumin 4, AST 21, ALT 17, alkaline phosphatase 110. Lipase 27, amylase 19. BNP 552. Troponin 0.04, 0.05, 0.04. TSH 1.01. Hemoglobin 11.3, hematocrit 34.4, white blood cell count 4.2, platelet count 118,000. Urinalysis shows trace protein, 100 glucose, urobilinogen 1, negative bile, negative blood, negative leukocyte esterase, negative nitrite. IMAGING: CT of abdomen and pelvis, March 07: Prominent small bowel loops in the right lower quadrant, etiology is unclear. Some perihepatic and pelvic ascites unchanged since the prior study as in cirrhotic liver Unit #: [id number] #: [id number] Patient: CRYS SHEA,SOFIE Quiros morphology, splenomegaly, and an abdominal aortic aneurysm. Aneurysm sac is unchanged since prior study, though mural thrombus has clearly increased since prior study. Aneurysm still measures 5 cm in maximal AP dimension. CT angio of abdomen and pelvis, March 09, 2017: Stable infrarenal abdominal aortic aneurysm. Increased distention of small bowel loop suggesting worsening bowel obstruction. CARDIOVASCULAR: Echo done January 20, 2015 shows an EF of 20% to 25%. Doppler flow pattern suggestive of restrictive physiology, severe global hypokinesis of the left ventricle, severe mitral regurgitation, mild tricuspid regurgitation. Left ventricle is severely dilated. ASSESSMENT 1. Arteriosclerotic heart disease with history of coronary artery bypass grafting, re-do grafting and percutaneous coronary intervention without complaints of chest discomfort. Troponins are negative. 2. Dilated ischemic cardiomyopathy with ejection fraction of 20% to 25%. 3. History of automated implantable cardioverter defibrillator. 4. Chronic systolic congestive failure without any evidence of fluid volume overload. 5. Abdominal aortic aneurysm: Vascular surgery following. Discussed with vascular surgeon. Patient will not have vascular surgery this admission but will follow up as an outpatient. 6. Status post recent hernia repair in December as well as laparoscopic cholecystectomy in December, now with questionable partial small bowel obstruction awaiting small bowel follow through results. 7. History of cerebrovascular accident. 8. History of hepatic cirrhosis and esophageal varices. Quit alcohol five to eight years ago. 9. Cachexia, weight loss, with possible small bowel obstruction status post cholecystectomy. PLAN We will repeat a 2D echocardiogram. We will get a Lexiscan stress test in the morning. MD to follow for any further recommendations. Dictated by... Nadia Jacobson, A.P.R.N. for Carlos Fuentes M.D. VTShannon/george TD: 03/10/2017 12:57 JOB #: [id number] Unit #: [id number] #: [id number] Patient: SOFIE BISHOP JR CONSULTATION REPORT Page 1 of 1 X X CONSULTATION REPORT
--- NOTE | ~2017-03-07 | HP ---
Unit #: [id number] #: [id number] Patient: SOFIE SPANGLER JR [id number] [address] [place], [place] [address] [id number] I MR#: [id number] NAME: SOFIE SPANGLER JR ROOM: 59645 Age: 66 Sex: M Admission Date: 03/08/2017 : 1950 Attending Physician: Yanna Cabrera M.D. Primary Care Physician: No Primary Care Physician HISTORY AND PHYSICAL CHIEF COMPLAINT Right upper quadrant pain, weight loss, weakness and falling. HISTORY This 66-year-old male with an ischemic cardiomyopathy, treated hepatitis C with cirrhosis, low grad follicular lymphoma, is admitted for abdominal pain, weight loss, weakness and falling. The patient underwent a laparoscopic cholecystectomy 12/31/[address] Newsome. He states that since his surgery he has had chronic diarrhea. Notes right upper quadrants, right mid abdominal discomfort after eating, which was associated with significant weight loss. Denies melena, hematochezia, fever, sweats or chills. He became increasingly weak over the past week and has fallen five times. He states that his legs give out. He is interested in fpc placement for rehab. He was actually admitted 01/22/[address] scan was suspicious for a partial small bowel obstruction. Today's CT scan is unchanged from 01/22/2017. However, patient is experiencing diarrhea, not constipation. Notes occasional nausea and vomiting. On examination he does have tenderness, which localizes to the mid abdomen and right upper quadrant. In the ER he was treated with Bentyl, Zofran, Pepcid, continues to experience discomfort. PAST MEDICAL HISTORY 1. Ischemic cardiomyopathy ejection fraction 20% to 25% with severe mitral regurgitation. The patient is status post CABG and redo CABG with first stent placement. Status post AICD placement. Has a history of paroxysmal atrial fibrillation. 2. Peripheral vascular disease, status post stent to the right common iliac artery. The patient also has a known abdominal aortic aneurysm. 3. Hepatitis C with previous EGD revealing grade 1 esophageal varices. The patient was treated for his hepatitis C. Does have a previous history of hepatic encephalopathy as well. 4. CVA without residual symptoms 2007 and possible TIA. 5. Hypertension. 6. Hyperlipidemia. 7. Low grade B-cell follicular lymphoma, followed by Dr. Bateman. The patient has low grade hemolysis and iron deficiency anemia with chronic anemia. The low grade lymphoma does involve the bone marrow. 8. Splenomegaly. 9. Colonoscopy 07/2015. Multiple AVMs were noted, which were cauterized. 10. Diverticulosis also noted. 11. Left elbow surgery. 12. Appendectomy. Unit #: [id number] #: [id number] Patient: SOFIE SPANGLER JR 13. Umbilical hernia repair. 14. Laparoscopic cholecystectomy. ALLERGIES No known drug allergies. HOME MEDICATIONS Iron 325 mg daily; Aldactone 25 mg b.i.d.; aspirin 81 mg daily; digoxin 0.25 mg daily; Coreg 25 mg b.i.d.; Lipitor; calcium; Bumex; Neurontin 600 mg b.i.d.; Ativan p.r.n.; nitroglycerin p.r.n.; Lortab p.r.n.; Protonix 40 mg b.i.d. Patient states that recently has not taken his potassium or diuretics. FAMILY HISTORY CVA, lung cancer, diabetes mellitus. SOCIAL HISTORY The patient lives alone. He not longer drinks alcohol. He stopped smoking about five years ago. REVIEW OF SYSTEMS Notable for weakness, falling, abdominal pain, diarrhea, mild nausea, vomiting, weight loss, CAD, PVD, hepatitis C, CVA, TIA, hypertension, hyperlipidemia, lymphoma, above mentioned surgeries. All other systems were reviewed and are otherwise negative. PHYSICAL EXAMINATION GENERAL: Pleasant 66-year-old male currently in no acute distress. VITAL SIGNS: Temperature 98.4, pulse 70, respirations 18, blood pressure 154/61, O2 saturation 100% on room air. HEENT: Eyes - PERRLA, extraocular muscles are intact. Pharynx is benign. NECK: Supple without adenopathy or thyromegaly. CHEST: Clear. CARDIAC: Normal S1 and S2 without gallop. Soft systolic murmur. ABDOMEN: Bowel sounds are present. Mild hepatomegaly noted on exam. Well healed scars are noted. Patient is most tender in the epigastric right upper quadrant region without rebound or guarding. EXTREMITIES: With mild edema. Some superficial sores noted over the legs. Pedal pulses are diminished. NEUROLOGIC: Patient is awake, alert and oriented. Cranial nerves are intact. He has equal strength throughout. DIAGNOSTIC STUDIES ADMISSION LABS: Hematocrit is 36.8, up from 27.6 in January, white blood count 3.9, platelet count 137 which is improved. SMA 12 - glucose 153, alk phos 110, normal troponin. Urinalysis - trace protein and glucose without significant white or red cells. IMAGING STUDIES: CT scan shows prominent small bowel loops in the right lower quadrant with narrowing of the small bowel, which could be a transition zone in the right lateral abdomen but this is similar to appearance to previous CT scan in January. Ascites noted, cirrhosis, splenomegaly, abdominal aortic aneurysm measuring 5 cm, which is changed but patient does have increased mural thrombus. CARDIOLOGY STUDIES: EKG - normal sinus rhythm rate 67 with T wave inversions noted laterally and inferiorly. Perhaps a little bit more prominent on today's EKG than previous. Q noted in lead 3. Unit #: [id number] #: [id number] Patient: SOFIE SPANGLER JR Intraventricular conduction delay. First degree AV block also noted previously. ASSESSMENT 1. Continued right upper quadrant pain. The patient states he develops pain after eating, and has experienced weight loss. He has chronic diarrhea since his laparoscopic cholecystectomy 12/31/2016. Although the CT scan shows possible partial small bowel obstruction, this was also noted previously, and patient has diarrhea and is not constipated. 2. Weight loss. 3. Weakness in the legs with falling multiple times over the past week. The patient is interested in fpc placement with rehab. 4. Ischemic cardiomyopathy, status post CABG and redo with ejection fraction 20% to 25% and severe MR. 5. Peripheral vascular disease and abdominal aortic aneurysm. 6. Hepatitis C treated in the past. 7. History of CVA and TIA. 8. Essential hypertension. 9. Low grade B-cell follicular lymphoma. PLANS 1. Very gentle IV fluids. 2. Will ask [facility] to consult again. Patient may need EGD etc. 3. Social work and physical therapy to see. 4. Check Dig level and thyroid function test. 5. Stool cultures, consider Welchol if cultures are negative. Dictated by Yanna Cabrera M.D. AML/ts TD: 03/08/2017 05:48 JOB #: [id number] HISTORY AND PHYSICAL Page 1 of 1 X Yanna Cabrera MD HISTORY AND PHYSICAL
--- NOTE | ~2017-03-07 | DS ---
Unit #: [id number] #: [id number] Patient: SOFIE SPANGLER JR [id number] [id number] [facility]. [place], [place] [address] [id number] I MR#: [id number] NAME: SOFIE SPANGLER JR ROOM: 550 Age: 66 Sex: M Admission Date: 03/08/2017 : 1950 Discharge Date: 03/11/2017 Attending Physician: Shay Franco M.D. Primary Care Physician: No Primary Care Physician DISCHARGE SUMMARY DATE/TIME OF March 11, 2017 at 0242 hours. HISTORY OF PRESENT ILLNESS/HOSPITAL COURSE Please see H and P for complete details. Essentially patient was admitted secondary to abdominal pain, partial small bowel obstruction, as well as persistent diarrhea and had a recent laparoscopic cholecystectomy. He does have a prior history of ischemic cardiomyopathy, and he does have, also, a prior history of an abdominal aortic aneurysm. Within the abdominal aortic aneurysm, his initial CT abdomen and pelvis did show a mural thrombus and had increased to 5 cm; previously per prior records I believe it was between 2 cm to 3 cm. In regard to the same, consultation was subsequently placed to [facility] in regard to his partial small bowel obstruction. He had undergone, on 03/10/2017, a small bowel follow through, and workup was being initiated for further evaluation. At the same time, consultation had been placed to vascular service, who had requested a CTA of the abdomen and pelvis, and consideration was given for operative management of the aforementioned abdominal aortic aneurysm. Consultation had already been placed to [facility] for evaluation, as they had seen the patient in the past, and Dr. Carlos Fuentes and associates had seen and evaluated the patient. Initial workup was started. Lexiscan stress test was ordered for 03/11/2017, as well as a two-D echocardiogram. Unfortunately, on the morning of 03/11/2017 at approximately 0230 the patient began complaining of diffuse pain. He became suddenly apneic, as well as unresponsive. MET team was subsequently called. Despite best attempts at ACLS, as well as CPR, patient was unable to be resuscitated. He was pronounced at 0242 hours. It seems likely that his possible underlying etiology may be ruptured abdominal aortic aneurysm versus acute OH. FINAL DISCHARGE DIAGNOSES 1. Abdominal pain. 2. Partial small bowel obstruction. 3. Abdominal aortic aneurysm. 4. Ischemic cardiomyopathy. Ejection fraction, I believe, 20% to 25%. 5. Persistent diarrhea with recent laparoscopic cholecystectomy. 6. Hypertension. 7. Prior history of tobacco abuse. 8. Chronic obstructive pulmonary disease. 9. Prior history of alcohol abuse. Unit #: [id number] #: [id number] Patient: CRYS SHEA,SOFIE Quiros 10. Cirrhosis. Dictated by... Shay Franco M.D. FLOWER/noah TD: 03/13/2017 20:03 JOB #: [id number] DISCHARGE SUMMARY Page 1 of 1 X Shay Franco MD X DISCHARGE SUMMARY
--- NOTE | ~2017-03-07 | CO ---
Unit #: [id number] #: [id number] Patient: SOFIE BISHOP JR [id number] [address] [place], [place] [address] [id number] MR#: [id number] NAME: SOFIE BISHOP ROOM: 550 Age: 66 Sex: M Admission Date: 03/08/2017 : 1950 Attending Physician: Shay Franco M.D. Consultation Date: 03/08/2017 CONSULTATION REPORT REASON FOR CONSULTATION Abdominal aortic aneurysm. HISTORY OF PRESENT ILLNESS Mr. Bishop is a 66-year-old gentleman with history of hepatitis C, which has been previously treated and now with cirrhosis. He underwent a laparoscopic cholecystectomy on 12/31/[address] Sumanth Newsome. He is now admitted with chronic diarrhea, abdominal pain, and weight loss. As part of his evaluation, he had a CT scan which demonstrated a 5 cm infrarenal abdominal aortic aneurysm. His aneurysm was noted to have increased mural thrombus compared to a prior study. He states that he has known about the aneurysm for many years, but it has never been large enough to require intervention. He denies any other abdominal pain that he was admitted with. He has not had any back pain. He denies any other complaints at the time of his evaluation. PAST MEDICAL HISTORY Coronary artery disease with previous myocardial infarction, ischemic cardiomyopathy, history of hepatitis C which was previously treated, cirrhosis, low-grade follicular lymphoma, peripheral artery disease, esophageal varices, previous stroke, hypertension, hyperlipidemia, diverticulosis, paroxysmal atrial fibrillation. PAST SURGICAL HISTORY Coronary stent placement, coronary bypass on two occasions, AICD placement, right common iliac artery stent placement, appendectomy, left elbow surgery, recent laparoscopic cholecystectomy, umbilical hernia repair. MEDICATIONS Iron 325 mg p.o. daily, Aldactone 25 mg p.o. b.i.d., aspirin 81 mg p.o. daily, digoxin 0.25 mg p.o. daily, Coreg 25 mg p.o. b.i.d., Lipitor, calcium, Bumex, Neurontin 600 mg p.o. b.i.d., Ativan p.r.n., nitroglycerin p.r.n., Lortab p.r.n., Protonix 40 mg p.o. b.i.d. ALLERGIES None. SOCIAL HISTORY He is and lives by himself in [place]. He is retired, previously worked at a factory. He quit smoking about 5 years ago. He no longer drinks alcohol. FAMILY HISTORY Unit #: [id number] #: [id number] Patient: SOFIE BISHOP JR Positive for stroke, lung cancer, and diabetes mellitus. REVIEW OF SYSTEMS Positive for recent weakness with several falls. Otherwise, 10-point review of systems is negative. PHYSICAL EXAMINATION VITAL SIGNS: Temperature 98.4, pulse 68, respirations 18, blood pressure 139/49. GENERAL APPEARANCE: Thin elderly white male. Pleasant and cooperative. Fully alert and oriented. Fair historian. Good mood. Appropriate affect. No acute distress. HEENT: Extraocular movements intact. No xanthelasma of the eyelids. Oral mucosa is pink and moist. NECK: No JVD. No cervical bruits. LUNGS: Clear bilaterally. No use of accessory respiratory muscles. HEART: Regular rate and rhythm with a grade 1/6 systolic murmur. No extra heart sounds. CHEST: Well-healed median sternotomy scar. There is an AICD in the left infraclavicular position. ABDOMEN: Distended but soft and nontender. Hyperactive bowel sounds. Abdominal aortic aneurysm is palpable in the periumbilical region, but no tenderness to deep palpation. EXTREMITIES: Hands and feet are pink and warm. Trace edema of both ankles. Radial and femoral pulses are palpable bilaterally. Popliteal, dorsalis pedis, and posterior tibial pulses are not palpable on either side. DIAGNOSTIC STUDIES IMAGING STUDIES: I reviewed his CT scan with contrast from 03/07/2017. There is a 5 cm infrarenal abdominal aortic aneurysm with a large amount of mural thrombus, but the thrombus does not cause any significant narrowing of the aortic lumen. There is calcified plaque throughout the renal arteries, iliac arteries, and femoral arteries, but they remain patent. IMPRESSION 1. Asymptomatic 5 cm infrarenal abdominal aortic aneurysm. The patient's aneurysm did not appear to be the etiology of his current abdominal complaints. 2. Coronary artery disease with previous myocardial infarction, status post coronary bypass. 3. Ischemic cardiomyopathy. 4. Paroxysmal atrial fibrillation. 5. Hypertension. 6. Hyperlipidemia. 7. Peripheral artery disease. 8. History of hepatitis C. 9. Cirrhosis of the liver. 10. History of esophageal varices. 11. Low-grade B-cell follicular lymphoma. 12. History of stroke. PLAN The patient's increasing mural thrombus in his abdominal aortic aneurysm is not necessarily a concern. His aneurysm is large enough to consider repair. He is not a good candidate for open repair of his aneurysm due to his multiple comorbidities, but he may be a suitable candidate for Unit #: [id number] #: [id number] Patient: SOFIE BISHOP JR endovascular repair of his aneurysm once he is medically stable. I have requested a CT angiogram of the abdomen and pelvis to better evaluate his abdominal aortic aneurysm and determine his candidacy for an aortic stent graft. He will need cardiac clearance prior to considering aneurysm repair. Dictated by... Gabriel Hernandez/james TD: 03/09/2017 03:54 JOB #: [id number] CONSULTATION REPORT Page 1 of 1 X Rohit Serrano MD X CONSULTATION REPORT
--- NOTE | ~2017-03-07 | CT2 ---
[facility] A Service of [facility] / [facility] RADIOLOGY TEXT RESULTS PATIENT: SOFIE SPANGLER JR LOCATION: [facility] 550- : 51 UNIT #: [id number] AGE: [address]: Shay Franco MD SEX: M ORDER DR: [id number] [facility] [address] [place], [place] [address] [id number] MR#: [id number] #: [id number] NAME: SOFIE SPANGLER JR : 1950 SEX: M STUDY DATE/TIME: 03/07/2017 21:56 UNIT: CHAIM ROOM: STUDY DESCRIPTION: CT Abd and Pelv W Cont Attending Physician: Dieudonne Taveras M.D. Ordering Physician: Dieudonne Taveras M.D. Primary Care Physician: Primary Care Physician No MEDICAL IMAGING REPORT This report is preliminary unless electronic signature is present EXAM CT abdomen and pelvis 03/07/[address] abdomen and pelvis with IV contrast and multiplanar reformats. This CT exam was performed with one or more of the following radiation dose reduction techniques: Automatic exposure control, adjustment of mA and/or kV according to patient size, and iterative reconstruction. COMPARISON Prior CT 01/21/2017 CLINICAL HISTORY History of lymphoma, abdominal pain, nausea and vomiting for 2 months. FINDINGS The lung bases are unremarkable. ABDOMEN: There is a tiny amount of perihepatic ascites and there is splenomegaly and a questionably cirrhotic liver morphology. The portal vein is patent. The kidneys and adrenal glands are normal. Redemonstrated abdominal aortic aneurysm though mural thrombus has clearly increased since the prior study. It still measures about 5 cm in maximal AP dimension. There are mildly dilated loops of small bowel in the right lower quadrant, but there is gas and stool in the colon, and the small bowel loops are nonspecific in appearance. There is a tiny amount of fluid in the pelvis with a small, calcified structure deep in the pelvis unchanged since the prior study. Mildly prominent small bowel loops are actually somewhat similar to the prior exam as well. [facility] A Service of [facility] RADIOLOGY TEXT RESULTS PATIENT: SOFIE SPANGLRE JR LOCATION: [facility] 550-01 : 51 UNIT #: [id number] AGE: [address]: Shay Franco MD SEX: M ORDER DR: IMPRESSION 1. As on the prior study, there are some prominent small bowel loops in the right lower quadrant. Etiology is unclear. There is a narrowed segment of small bowel, which may represent a transition zone in the right lateral abdomen suggesting there may be a partial small bowel obstruction, and similar findings in a similar location were seen on the prior study as well. There is certainly no abscess and there is gas and stool in the colon so if there is any small bowel obstruction, it is partial or acute. 2. There is some perihepatic and pelvic ascites unchanged since the prior study, as is a cirrhotic liver morphology, splenomegaly and an abdominal aortic aneurysm. The aneurysm sac is unchanged since the prior study though mural thrombus has clearly increased since that prior study. Aneurysm still measures about 5 cm in maximal AP dimension. No other acute abnormality is seen. Dictated by... Damien Crespo M.D. THIS IS AN ELECTRONICALLY VERIFIED REPORT Damien Crespo M.D. at 03/09/2017 9:44 AM TEV/psc TD: 03/08/2017 02:28 JOB #: [id number] MEDICAL IMAGING REPORT Page 1 of 1 COPY
--- NOTE | ~2017-03-07 | CR236 ---
[facility] A Service of [facility] RADIOLOGY TEXT RESULTS PATIENT: RAKESH SPANGLER JR LOCATION: [facility] 550-01 : 51 UNIT #: [id number] AGE: [address]: Shay Franco MD SEX: M ORDER DR: [id number] [facility] [address] [place], [place] [address] [id number] MR#: [id number] Acc #: [id number] NAME: RAKESH SPANGLER JR : 1950 SEX: M STUDY DATE/TIME: 03/10/2017 7:48 UNIT: C5B ROOM: [facility] STUDY DESCRIPTION: CR Small Bowel Sbft W Films Attending Physician: Shay Franco M.D. Ordering Physician: Rakesh Echevarria Jr., M.D. Primary Care Physician: No Primary Care Physician MEDICAL IMAGING REPORT This report is preliminary unless electronic signature is present EXAM Small bowel series. INDICATIONS Bowel obstruction. Abdominal distension. Symptoms began recently. The CT scan yesterday showed a distended small bowel. FINDINGS The preliminary sas architect film shows the known aortic aneurysm with vascular stents in the iliac vessels. The patient was given barium orally and is followed through the small bowel for hours. All of the visualized small bowel is distended and the barium column comes to a halt, on the 2-hour image in the right lower quadrant where there appears to be a near complete obstruction. The barium does not move past this point at 3 hours, but at the 5 and 6 hour film, there is a small amount of contrast getting through to the distal bowel. CT scan yesterday showed a focal area of narrowing with wall enhancement in the narrowed section in the right lower quadrant just near the cecum. This does not appear to be the actual terminal ileum, but it is in the lower ileum. The abnormal segment is only 2 [address] long [address] the [address] scan. IMPRESSION 1. There is a near complete obstruction of the small bowel in the mid ileum. CT scan done yesterday shows a very focal narrowing that is about 2 cm long in this region, and the small bowel series done today shows a complete halt to the barium forward movement at that point for a couple of hours. On the 5 and 6-hour delayed films, is a very small amount of barium that has moved distally into nondistended bowel. The patient did throw-up some during the procedure. No mass is visible. Stricture is certainly possible if the patient has had a previous surgery, or this could represent ileitis and scarring. [facility] A Service of [facility] RADIOLOGY TEXT RESULTS PATIENT: RAKESH SPANGLER JR LOCATION: [facility] 550-01 : 51 UNIT #: [id number] AGE: [address]: Shay Franco MD SEX: M ORDER DR: Dictated by... Chidi Parker M.D. THIS IS AN ELECTRONICALLY VERIFIED REPORT Chidi Parker M.D. at 03/11/2017 7:09 AM KARLEE/james TD: 03/10/2017 16:19 JOB #: [id number] MEDICAL IMAGING REPORT Page 1 of 1 COPY
[2017-03-07 19:15] LABS: BASOPHIL% 0.7 % (0-2.5); EOSINOPHIL% 1.2 % (0.0-7.0); HEMATOCRIT 36.8 % (38.0-50.0); HEMOGLOBIN 11.8 gm/dL (13.0-16.0); LYMPHOCYTE# 0.9 X10e3 (1.0-3.5); LYMPHOCYTE% 22.9 % (17.0-45.0); MEAN CELL VOLUME 76.5 FL (83-96); MEAN CORPUSCULAR HEMOGLOBIN 24.5 PG (28-34); MEAN CORPUSCULAR HGB CONC 32.1 g/dL (30-36); MEAN PLATELET VOLUME 8.3 FL (6.5-11.5); MONOCYTE# 0.5 X10e3 (0-1.0); MONOCYTE% 12.3 % (3.0-12.0); NEUTROPHIL# 2.4 X10e3 (1.5-7.1); NEUTROPHIL% 62.9 % (40-75); PLATELET COUNT 137 X10e3 (140-420); RED BLOOD COUNT 4.81 X10e (3.90-5.60); RED CELL DISTRIBUTION WIDTH 19.9 % (11.0-15.5); WHITE BLOOD COUNT 3.9 X10e3 (4.0-10.5)
[2017-03-07 19:16] LABS: DIFF IND NO
[2017-03-07 19:35] LABS: BILIRUBIN, DIRECT 0.1 mg/dL (0.0-0.2); BILIRUBIN,INDIRECT 0.7 mg/dL (0.0-0.9); BILIRUBIN,TOTAL 0.8 mg/dL (0.2-2.0); BUN/CREATININE RATIO 22.85; CALCIUM SERUM 9.2 mg/dL (8.4-10.2); CREATININE SERUM 0.7 mg/dL (0.6-1.4); GLOM FILT RATE Estimated 99.1 mL/min (>60); POTASSIUM 4.2 mmol/L (3.5-5.1); PROTEIN TOTAL SERUM 6.7 g/dL (6.0-8.3)
[2017-03-07 22:01] LABS: CK TOTAL 45 IU/L (36-174)
[2017-03-07 23:45] LABS: URINE SOURCE CLEAN CATCH
[2017-03-07 23:51] LABS: URINE APPEARANCE CLEAR; URINE BILIRUBIN NEG (NEG); URINE BLOOD NEG (NEG); URINE COLOR DK YELLOW; URINE GLUCOSE 100 MG/DL (NEG); URINE KETONE NEG (NEG); URINE LEUKOCYTE ESTERASE NEG (NEG); URINE NITRATE NEG (NEG); URINE PH 5.5 (5-8); URINE PROTEIN TRACE (NEG); URINE SPECIFIC GRAVITY 1.026 (1.003-1.035)
[2017-03-07 23:56] LABS: CULTURE INDICATED? NO
[2017-03-08 03:47] LABS: BASOPHIL% 0.8 % (0-2.5); EOSINOPHIL% 1.9 % (0.0-7.0); HEMATOCRIT 33.5 % (38.0-50.0); HEMOGLOBIN 10.9 gm/dL (13.0-16.0); LYMPHOCYTE# 0.6 X10e3 (1.0-3.5); LYMPHOCYTE% 23.7 % (17.0-45.0); MEAN CELL VOLUME 75.2 FL (83-96); MEAN CORPUSCULAR HEMOGLOBIN 24.4 PG (28-34); MEAN CORPUSCULAR HGB CONC 32.5 g/dL (30-36); MEAN PLATELET VOLUME 8.5 FL (6.5-11.5); MONOCYTE# 0.3 X10e3 (0-1.0); MONOCYTE% 12.7 % (3.0-12.0); NEUTROPHIL# 1.5 X10e3 (1.5-7.1); NEUTROPHIL% 60.9 % (40-75); PLATELET COUNT 102 X10e3 (140-420); RED BLOOD COUNT 4.45 X10e (3.90-5.60); WHITE BLOOD COUNT 2.4 X10e3 (4.0-10.5)
[2017-03-08 03:49] LABS: DIFF IND YES
[2017-03-08 04:11] LABS: PLATELET ESTIMATE DECREASED (NORMAL)
[2017-03-08 04:12] LABS: ANISOCYTOSIS SL; MICROCYTOSIS MOD; THYROID STIMULATING HORMONE 0.49 uIU/ml (0.34-5.60)
[2017-03-08 04:13] LABS: OVALOCYTES PRESENT
[2017-03-08 04:14] LABS: HYPOCHROMIA SL
[2017-03-08 04:19] LABS: FREE THYROXIN (T4) 0.81 ng/dL (0.58-1.64)
[2017-03-08 04:21] LABS: BUN/CREATININE RATIO 18.57; CALCIUM SERUM 8.9 mg/dL (8.4-10.2); CREATININE SERUM 0.7 mg/dL (0.6-1.4); GLOM FILT RATE Estimated 99.1 mL/min (>60)
[2017-03-08 04:26] LABS: MB 6.2 ng/ml
[2017-03-08] MEDS ORDERED: CELEXA20 MG PO (12:44)
[2017-03-08 12:49] LABS: %MB 4.3 % (0.0-4.0); MB 5.9 ng/ml
[2017-03-08] MEDS ORDERED: NEURONTIN600 MG DOB (12:56)
[2017-03-08] MEDS ORDERED: PROTONIX PO (12:57)
[2017-03-08] MEDS ORDERED: RANEXA500 MG PO (12:57)
[2017-03-08] MEDS ORDERED: ATIVAN0.5 MG PO (12:58)
[2017-03-08] MEDS ORDERED: DIGITEK125 MC1 PO (12:59)
[2017-03-08] MEDS ORDERED: ATORVASTATIN CA10 MG PO (12:59)
[2017-03-08] MEDS ORDERED: NITROSTAT0.4 MG SL (13:00)
[2017-03-08] MEDS ORDERED: BUMEX1 MG PO (13:01)
[2017-03-08] MEDS ORDERED: FERRO-TIME325 MG PO (13:01)
[2017-03-08] MEDS ORDERED: ALDACTONE25 MG PO (13:01)
[2017-03-08] MEDS ORDERED: COREG3.125 MG PO (13:02)
[2017-03-08] MEDS ORDERED: K-TAB ER20 MEQ PO (13:03)
[2017-03-09 05:29] LABS: HEMATOCRIT 35.1 % (38.0-50.0); HEMOGLOBIN 11.2 gm/dL (13.0-16.0); MEAN CELL VOLUME 75.5 FL (83-96); MEAN CORPUSCULAR HEMOGLOBIN 24.1 PG (28-34); MEAN CORPUSCULAR HGB CONC 31.9 g/dL (30-36); MEAN PLATELET VOLUME 8.5 FL (6.5-11.5); RED BLOOD COUNT 4.64 X10e (3.90-5.60); RED CELL DISTRIBUTION WIDTH 20.4 % (11.0-15.5)
[2017-03-09 05:38] LABS: WHITE BLOOD COUNT 3.9 X10e3 (4.0-10.5)
[2017-03-09 06:21] LABS: BUN/CREATININE RATIO 14.28; CALCIUM SERUM 9.2 mg/dL (8.4-10.2); CREATININE SERUM 0.7 mg/dL (0.6-1.4); DIGOXIN (LANOXIN) 0.7 ng/ml (1.0-2.0); GLOM FILT RATE Estimated 99.1 mL/min (>60); MAGNESIUM 1.8 mg/dL (1.6-3.0); POTASSIUM 4.3 mmol/L (3.5-5.1)
[2017-03-10 05:17] LABS: HEMATOCRIT 34.4 % (38.0-50.0); HEMOGLOBIN 11.3 gm/dL (13.0-16.0); MEAN CORPUSCULAR HEMOGLOBIN 24.7 PG (28-34); MEAN CORPUSCULAR HGB CONC 32.9 g/dL (30-36); MEAN PLATELET VOLUME 8.4 FL (6.5-11.5); RED BLOOD COUNT 4.58 X10e (3.90-5.60); RED CELL DISTRIBUTION WIDTH 19.8 % (11.0-15.5); WHITE BLOOD COUNT 4.2 X10e3 (4.0-10.5)
[2017-03-10 05:58] LABS: BUN/CREATININE RATIO 13.75; CALCIUM SERUM 8.6 mg/dL (8.4-10.2); CREATININE SERUM 0.8 mg/dL (0.6-1.4); GLOM FILT RATE Estimated 93.8 mL/min (>60); MAGNESIUM 1.5 mg/dL (1.6-3.0); PHOSPHOROUS 3.7 mg/dL (2.5-4.6)
== END 2017-03-11 06:45 | disposition expired | DRG 388 ==
LOC: CED 21:34 → CEDOF 03-08 01:10 → C5B 03-08 17:33
PROVIDERS: Emergency Medicine; Family Medicine; Specialist
PROC: B246ZZZ Ultrasonography of Right and Left Heart (ICD-10-PCS; principal; 2017-03-08)
DX: K56.60 Unspecified intestinal obstruction (principal); I21.3 ST elevation (STEMI) myocardial infarction of unspecified site; I71.3 Abdominal aortic aneurysm, ruptured; R64 Cachexia; C82.80 Other types of follicular lymphoma, unspecified site; I50.22 Chronic systolic (congestive) heart failure; I11.0 Hypertensive heart disease with heart failure; R18.8 Other ascites; R19.7 Diarrhea, unspecified; Z90.49 Acquired absence of other specified parts of digestive tract; I25.5 Ischemic cardiomyopathy; I25.10 Atherosclerotic heart disease of native coronary artery without angina pectoris; J44.9 Chronic obstructive pulmonary disease, unspecified; Z68.23 Body mass index [BMI] 23.0-23.9, adult; Z87.891 Personal history of nicotine dependence; Z91.81 History of falling; E78.5 Hyperlipidemia, unspecified; R16.1 Splenomegaly, not elsewhere classified; I34.0 Nonrheumatic mitral (valve) insufficiency; I48.0 Paroxysmal atrial fibrillation; Z79.01 Long term (current) use of anticoagulants; I73.9 Peripheral vascular disease, unspecified; Z95.0 Presence of cardiac pacemaker; Z95.1 Presence of aortocoronary bypass graft; K74.60 Unspecified cirrhosis of liver; Z86.73 Personal history of transient ischemic attack (TIA), and cerebral infarction without residual deficits; Z82.3 Family history of stroke; Z83.3 Family history of diabetes mellitus; Z80.1 Family history of malignant neoplasm of trachea, bronchus and lung
CPT/HCPCS: 36415; 74174; 74177; 74250; 80048; 80076; 80162; 81003; 82550; 82553; 83036; 83690; 83735; 83880; 84100; 84439; 84443; 84484; 85025; 85027; 87040; 93005; 93306; 96372; 96374; 96375; 97116; 97161; 99285; G8978-GP; G8979-GP; J0171; J0500; J2270; J2370; J2405; Q9967